=== PATIENT | female | born 1995 | race Caucasian/White ===

== ENCOUNTER → 2018-05-08 | Outpatient (REF) | payer OTHER ==
[2018-05-08 17:49] LABS: CONTROL LINE HCG INT CTR LINE PRESENT; HCG, SERUM QUALITATIVE POSITIVE (NEGATIVE)
[2018-05-08 19:11] LABS: HCG, SERUM QUANTITATIVE 14 MIU/ML
== END ==
LOC: M LAB REF 16:40
DX: N91.2 Amenorrhea, unspecified (principal)
CPT/HCPCS: 84703

== ENCOUNTER → 2018-05-14 | Outpatient (CLI) | payer OTHER ==
[2018-05-14 17:10] LABS: HCG, SERUM QUANTITATIVE 22 MIU/ML
== END ==
LOC: M LRY 14:20
DX: O20.0 Threatened abortion (principal)
CPT/HCPCS: 84702

== ENCOUNTER → 2018-05-21 | Outpatient (CLI) | payer OTHER ==
[2018-05-21 17:03] LABS: HCG, SERUM QUANTITATIVE 161 MIU/ML
== END ==
LOC: M LRY 10:59
DX: O03.4 Incomplete spontaneous abortion without complication (principal)
CPT/HCPCS: 84702

== ENCOUNTER → 2018-06-04 | Outpatient (CLI) | payer OTHER | LOC: M LRY 09:39 | PROVIDERS: ATTEND Nurse Practitioner Women's Health | DX: O03.4 Incomplete spontaneous abortion without complication (principal) ==

== ENCOUNTER → 2018-06-12 | Outpatient (CLI) | payer OTHER | LOC: M LRY 10:46 | PROVIDERS: ATTEND Nurse Practitioner Women's Health | DX: O02.1 Missed abortion (principal) ==

== ENCOUNTER → 2018-06-18 | Outpatient (CLI) | payer OTHER | LOC: M LRY 17:32 | PROVIDERS: ATTEND Nurse Practitioner Women's Health | DX: O02.1 Missed abortion (principal) ==

== ENCOUNTER → 2018-12-04 | Outpatient (REF) | payer OTHER ==
[2018-12-04 12:58] LABS: HEMATOCRIT 37.4 % (36.0-47.0); HEMOGLOBIN 12.6 g/dl (12.0-15.5); MEAN CORPUSCULAR HEMOGLOBIN 29.4 pg (27.0-33.0); MEAN CORPUSCULAR HGB CONC 33.7 g/dl (32.0-36.5); MEAN CORPUSCULAR VOLUME 87.2 fl (80.0-96.0); PLATELET COUNT, AUTOMATED 327 10^3/uL (150-450); RED BLOOD COUNT 4.29 10^6/uL (4.00-5.40); WHITE BLOOD COUNT 7.5 10^3/uL (4.0-10.0)
[2018-12-04 14:17] LABS: HCG, SERUM QUANTITATIVE 20982 MIU/ML; HEPATITIS C VIRUS ABY INDEX 0.1 INDEX (<0.8); HIV 1&2 SCREEN CENTAUR NEGATIVE (NEGATIVE); RUBELLA IgG QUALITATIVE IMMUNE (IMMUNE)
== END ==
LOC: M LAB REF 12:11
PROVIDERS: ATTEND Nurse Practitioner Women's Health
DX: O36.80X0 Pregnancy with inconclusive fetal viability, not applicable or unspecified (principal); Z32.01 Encounter for pregnancy test, result positive

== ENCOUNTER → 2019-05-07 | Outpatient (CLI) | payer OTHER ==
[2019-05-07 11:05] LABS: HEMOGLOBIN 11.7 g/dl (12.0-15.5); MEAN CORPUSCULAR HEMOGLOBIN 29.3 pg (27.0-33.0); MEAN CORPUSCULAR HGB CONC 32.5 g/dl (32.0-36.5); PLATELET COUNT, AUTOMATED 242 10^3/uL (150-450); WHITE BLOOD COUNT 12.3 10^3/uL (4.0-10.0)
== END ==
LOC: M LAB 09:23
PROVIDERS: ATTEND Nurse Practitioner Women's Health
DX: Z36.89 Encounter for other specified antenatal screening (principal)

== ENCOUNTER → 2019-05-14 | Outpatient (CLI) | payer OTHER | LOC: M LAB 07:56 | PROVIDERS: ATTEND Nurse Practitioner Women's Health | DX: R73.02 Impaired glucose tolerance (oral) (principal) ==

== ENCOUNTER → 2019-06-30 | Outpatient (REF) | payer OTHER | LOC: M SFHCWAGY 13:04 | PROVIDERS: ATTEND Advanced Practice Midwife | DX: Z36.85 Encounter for antenatal screening for Streptococcus B (principal) ==

== ENCOUNTER 2019-07-27 13:32 | Inpatient (IN) | payer OTHER ==
[~2019-07-27] VITALS: Ht 157.5 cm; Wt 71.3 kg
[2019-07-27] VITALS (7 sets, daily range): BP systolic 117–143; BP diastolic 61–78
[2019-07-27] MEDS ORDERED: ACET650T3 PO (13:49)
--- NOTE | 2019-07-27 16:15 | HPEPDOC ---
Obstetrical History & Physical General Date of Admission 07/27/19 Primary Care Physician: FLORES DE LAV EGA CNM History of Present Illness Patient is a 24-year-old female who is a at 39.2 weeks gestation with an MARICRUZ of 08/01/19 based off of her LMP and consistent with her first trimeter ultrasound. She initiated care in her first trimester with Christina Zhang and transferred care to [facility] at 35 weeks gestation. Her has been uncomplicated. She presents to L&D with complaints of contractions that started at 0800. She reports they became very painful at 12:30 today. She reports active movement. Denies leaking of fluid or vaginal bleeding. Chief Complaint: Active Labor Information Provided By: Patient Age: 24 : 3 Term: 1 Pre-term: 0 Abortions: 1 Livin Care Care: Good Care Dating Final EDC: Aug 01, 2019 Final EDC by: LMP EGA at Admission: 39.2 Antepartum Course Diagnos(e)s bilobed placenta Height (inches): 62 Admission Weight (lbs.): 156 Past Medical History Past Obstetrical History : Past Obstetrical History: Primgravida Gestation: 39.4 Type of Delivery: Spontaneous Vaginal Del. (05/2016) Sex of Infant: Male (weight 7 lbs 11 oz) Complications: No [employer] COMMISSIONER History: Ectopic Past Medical History Medical History no current problems Surgical History: [place] teeth Family History Significant Family History: Other (fibromyalgia and rheumatoid arthritis) Social History Marital Status: Family situation: Spouse/partner home Psychosocial History: No pertinent psych hx * Smoker: non-smoker Alcohol: Denies Drugs: denies Abuse Violence Screening Have you been hit/kicked/slapp: No Have you been sexually assault: No Allergies Coded Allergies: No Known Allergies (Unverified , 07/27/19) Medications Scheduled PRN Acetaminophen (Pain Reliever) 650 Mg Tablet.er, 650 MG PO Q6HP PRN for DISCOMFORT Physical Examination Physical Examination GENERAL: Alert and oriented times three. BREAST: . ABDOMEN: Gravid and non-tender to touch. FETUS: Is vertex (VTX) by sterile vaginal examination (SVE), fetus is vertex (VTX) by Isaac. HEART RATE: Regular rate and rhythm. LUNGS: Clear to auscultation (CTA). EXTREMITIES: No edema. No clonus. Deep tendon reflexes (DTRs) + 2. Vital Signs/I&O Vital Signs Date Time Temp Pulse Resp B/P (MAP) Pulse Ox O2 Delivery O2 Flow Rate FiO2 07/27/19 14:48 80 20 117/66 (83) 07/27/19 13:50 98.2 99 Room Air Pertinent Laboratoy Data Blood Type: O+ RBC Antibody Screen: Negative HIV: Negative Hepatitis B: Negative Hepatitis C: Negative Rapid Plasma Reagin: Nonreactive Rubella: Immune Chlamydia/Gonorrhea: Negative Group B Streptococcus: Negative Glucose Tolerance Test: 149 Diag/Inter Therapy NIPT low risk and normal male Anatomy Ultrasound Ultrasound Date: Mar 18, 2019 Normal Anatomy: Yes Placenta Previa: No Vaginal Examination Dilation: 4 cm (4-5 cm) Effacement: 80% Station: -1 Cervical Consistency: Soft Cervical Position: Anterior Presentation: Cephalic presentation Position: Vertex (occiput) Assessment Heart Rate (FHR): 130 Variability: Moderate Accelerations: Positive Decelerations: None Tocometer Contractions: Yes Frequency: regular Assessment/Plan Assessment IUP at 39.2 weeks gestation Category I FHR tracing active labor GBS negative Plan Admit to L&D. OOB ad federica Diet: regular. Group B Streptococcus (GBS) negative. Labs and intravenous (IV) per unit protocol. Anesthesia consult per patient's request. Anticipate cervical change and . FLORES DE LA VEGA CNM Jul 27, 2019 16:15
[2019-07-27 17:08] LABS: HEMOGLOBIN 11.2 g/dl (12.0-15.5); MEAN CORPUSCULAR HEMOGLOBIN 24.9 pg (27.0-33.0); MEAN CORPUSCULAR VOLUME 77.8 fl (80.0-96.0); PLATELET COUNT, AUTOMATED 300 10^3/uL (150-450); WHITE BLOOD COUNT 17.5 10^3/uL (4.0-10.0)
[2019-07-27] MEDS ORDERED: PROMETHAZINE INJ 25 MG/ML VIAL (J2550) IV ONE (18:30)
[2019-07-27] MEDS ORDERED: BUTORPHANOL 2 MG/ML INJ (J0595) IV ONE (18:30)
[2019-07-27] MEDS ORDERED: LACTATED RINGER'S 1000 ML IV ONE (18:30)
[2019-07-27] MEDS ORDERED: LR 1,000 ML IV ONE (18:30)
--- NOTE | 2019-07-27 18:33 | IPNPDOC ---
Obstetrical Progress Note Date of Service Jul 27, 2019 Subjective Patient reports feeling rectal pressure and is nauseous. Objective Vital Signs Date Time Temp Pulse Resp B/P (MAP) Pulse Ox O2 Delivery O2 Flow Rate FiO2 07/27/19 16:55 98.5 91 20 138/64 (88) 97 Room Air Assessment Heart Rate (FHR): 130 Variability: Moderate Heart Rate Tracing: Category I Tocometer Contractions: Yes Frequency: regular Sterile Vaginal Examination Dilation: 6 cm Effacement (%): 80% Station: -1 Cervical Consistency: Soft Cervical Position: Middle Postion/Presentation: Cephalic presentation Assessment and Plan EGA at Admission: 39.2 Status: Reassuring Anticipate: Vaginal Delivery Additional Comments AROM done over an hour ago with a small amount of clear fluid. Patient vomiting with contractions. 500 cc of emesis documented. Patient desire IV pain medication. Stadol and Phenergan ordered via IV. A bolus of IV fluid 500 cc ordered. FLORES DE LA VEGA CNM Jul 27, 2019 18:33
[2019-07-27] MEDS ORDERED: OXYTOCIN 30 UNITS IN 0.9% NaCl 500ML IV BAG (J2590) As Ordered ONE (19:13)
[2019-07-27] MEDS ORDERED: OXYTOCIN DRIP 30 UNITS in IV 1 EA IV SCH (20:56)
[2019-07-27] MEDS ORDERED: ACETAMINOPHEN 500 MG TAB PO PRN (21:00)
[2019-07-27] MEDS ORDERED: MEASLES,MUMPS,RUBELLA VACCINE INJ (MMR-II) (90707) SC SCH (21:00)
[2019-07-27] MEDS ORDERED: ACETAMINOPHEN TAB 650MG DOSE (2X325MG) PO PRN (21:00)
[2019-07-27] MEDS ORDERED: DIBUCAINE 1% OINTMENT 30GM TOP PRN (21:00)
[2019-07-27] MEDS ORDERED: ANUSOL HC CREAM 30GM TOP PRN (21:00)
[2019-07-27] MEDS ORDERED: METHYLERGONOVINE MALEATE 0.2 MG TAB PO PRN (21:00)
[2019-07-27] MEDS ORDERED: DOCUSATE SODIUM 100 MG CAP PO PRN (21:00)
[2019-07-27] MEDS ORDERED: RHOGAM 300 MCG (1500 IU) INJ (J2790) IM SCH (21:00)
[2019-07-27] MEDS ORDERED: IBUPROFEN 600 MG TAB PO PRN (21:00)
--- NOTE | 2019-07-27 21:05 | DNPDOC ---
[facility] Delivery Note Delivery Note DATE OF DELIVERY: 07/27/19 at 2021 PREDELIVERY DIAGNOSIS: 39-2/7 weeks' gestation and labor. POST DELIVERY DIAGNOSIS: Delivered. PROCEDURE: Spontaneous vaginal delivery TAILINGS WORKER: Flores Fuller CNM, JOSE LUIS ANESTHESIA: none. ESTIMATED BLOOD LOSS: 250 mL. FINDINGS: 8 pounds 1 ounce; 3650 grams; male infant, Score 9/10, nuchal cord times 1 loose, bilobed placenta. DELIVERY SUMMARY: Patient is a 24-year-old female who is now a who presented to L&d in active labor. She progressed to fully dilated at 2007 and pushed to a living male in the MCKAYLA position with restitution to ROT at 2021. A nuchal cord was noted. the anterior shoulder delivered with ease with gentle downward traction and the corpus was delivered via [place]. The baby as place don the maternal abdomen active and crying with stimulation. The cord was clamped x2 after 4 minutes and cut by the FOB. A 3-vessel cord was noted. The placenta delivered spontaneously and intact-2 lobes. Uterine hemostasis was achieved via rapid infusion of IV Pitocin and fundal massage. The perineum, cervix, and vagina was inspected and found to be intact. They plan on naming him Asim. Both mom and baby are in stable condition. Mom plans to bottle feed. All instruments and sponge counts are correct. FLORES FULLER CNM Jul 27, 2019 21:05
[2019-07-27] MEDS: IBUPROFEN 800 MG TAB PO PRN (22:59)
[2019-07-28 06:00] VITALS: BP 113/56
[2019-07-28] MEDS: PRENATAL VITAMINS CHEWABLE TABLET PO SCH (08:38)
[2019-07-28 17:49] VITALS: BP 119/57
[2019-07-28] MEDS: IBUPROFEN 800 MG TAB PO PRN (17:51)
[2019-07-29] MEDS: IBUPROFEN 800 MG TAB PO PRN (05:18)
[2019-07-29 05:43] VITALS: BP 130/70
[2019-07-29] MEDS: PRENATAL VITAMINS CHEWABLE TABLET PO SCH (09:00)
== END 2019-07-29 15:00 | disposition home or self-care (01) | DRG 807 ==
LOC: M LDO 13:32 → M LDI 15:50 → M OBS 22:34
PROVIDERS: ADMIT Advanced Practice Midwife; ATTEND Advanced Practice Midwife
PROC: 10E0XZZ Delivery of Products of Conception, External Approach (ICD-10-PCS; principal; 2019-07-27)
PROC: 10907ZC Drainage of Amniotic Fluid, Therapeutic from Products of Conception, Via Natural or Artificial Opening (ICD-10-PCS; 2019-07-27)
DX: O69.81X0 Labor and delivery complicated by cord around neck, without compression, not applicable or unspecified (principal); Z37.0 Single live birth; Z3A.39 39 weeks gestation of pregnancy

== ENCOUNTER → 2020-04-03 | Outpatient (REF) | payer OTHER ==
[~2020-04-03] MED LIST: ACET650T3 PO
== END ==
LOC: M PLALAB 12:40
PROVIDERS: ATTEND Advanced Practice Midwife
DX: Z34.90 Encounter for supervision of normal pregnancy, unspecified, unspecified trimester (principal)

== ENCOUNTER → 2020-04-10 | Outpatient (REF) | payer OTHER | LOC: M PLALAB 10:12 | PROVIDERS: ATTEND Advanced Practice Midwife | DX: O03.9 Complete or unspecified spontaneous abortion without complication (principal); Z3A.00 Weeks of gestation of pregnancy not specified ==

== ENCOUNTER → 2020-06-29 | Outpatient (REF) | payer OTHER | LOC: M SFHCWAGY 13:39 | PROVIDERS: ATTEND Advanced Practice Midwife | DX: Z12.4 Encounter for screening for malignant neoplasm of cervix (principal) | CPT/HCPCS: G0123; G0463 ==